=== PATIENT | female | born 1985 | race Caucasian/White ===

== ENCOUNTER 2016-11-19 20:48 | Emergency (ER) | payer SELFPAY ==
--- NOTE | 2016-11-19 21:17 | ED Physician Documentation ---
Upper Respiratory Symptoms - HISTORIAN Historian: patient - HPI Chief Complaint: Cough/ Upper Respiratory Additional Information: x 2weeks, states she has chronic bronchitis since she was born. now c/o non productive cough, diff breathing, chills, " i think i'm getting pneumonia" Onset: days ago Duration: constant Context: denies: recent foreign travel Severity: mild Associated Symptoms: chills, shortness of breath. denies: fever, sweating, runny nose, productive cough Worsened by Deep Breath: No Further Comments: no - ROS CONST/EYES: denies: weakness CVS/RESP: none LYMPH: denies: leg swelling GI/: none NEURO/PSYCH: denies: fainting, dizziness MS/SKIN: denies: joint pain - PAST HX Lung Disease: bronchitis PE Risk Factors: hypertension Other History: diabetes Type 1 Allergies/Adverse Reactions: Allergies Allergy/AdvReac Type Severity Reaction Status Date / Time acetaminophen Allergy Verified 11/19/16 21:14 [From Darvocet-N 100] diazepam [From Valium] Allergy Verified 11/19/16 21:14 Penicillins Allergy Verified 11/19/16 21:14 propoxyphene napsylate Allergy Verified 11/19/16 21:14 [From Darvocet-N 100] tramadol HCl [From Ultram] Allergy Verified 11/19/16 21:14 ondansetron HCl [From Zofran] AdvReac Mild nausea Verified 11/19/16 21:14 Home Medications: Ambulatory Orders Medication Instructions Recorded Insulin Glargine,Hum.rec.anlog 18 unit SQ HS 06/20/14 [Lantus] Acetaminophen with Codeine 1 - 2 each PO q4-6hrs prn u2 11/30/14 [Tylenol With Codeine #3 Tablet] Carisoprodol [Soma] 350 mg PO q8hrs u2 11/30/14 Ondansetron HCl Rapdis [Zofran Odt] 4 mg PO Q6H PRN #10 tab 01/29/15 Citalopram Hydrobromide 20 mg PO DAILY #30 tablet 08/17/15 [Citalopram HBr] Dicyclomine HCl [Bentyl] 10 mg PO QID #20 capsule 08/17/15 Fluconazole [Diflucan] 150 mg PO QD #7 tablet 08/17/15 [place] Carbonate 300 mg PO BID #60 tablet 08/17/15 Metformin HCl [Glucophage] [place] [address] #60 tablet 08/17/15 gliPIZIDE [Glucotrol] 5 mg PO 0730 #30 tablet 08/17/15 - SOCIAL HX Smoking History: cigarettes, greater than 1 pack/day Alcohol Use: none Drug Use: none - FAMILY HX Family History: none - VITAL SIGNS Vital Signs: Vital Signs Temp Pulse Resp BP Pulse Ox 136/78 05/27/16 22:58 - REVIEWED ASSESSMENTS Nursing Assessment Reviewed: Yes Vitals Reviewed: Yes ED Results Lab/Radiology - Orders Orders: ED Orders Category Date Time Status Ipratropium/Albuterol Sulfate [Duoneb] Med 11/19/16 21:13 Discontinued 3 ml NEB NOW ONE methylPREDNISolone SOD SUCC [Solu-MEDROL] Med 11/19/16 21:14 Discontinued 125 mg IM NOW ONE Upper Respiratory Symptoms - EXAM General Appearance: no acute distress, alert, anxious EENT: eyes nml inspection, nml ENT inspection Neck: normal inspection, supple Respiratory: no resp. distress, wheezes Abdomen: non-tender CVS: heart sounds normal, equal pulses Skin: color nml, no rash Extremities: non-tender, normal range of motion, no evidence of injury, no edema Neuro/Psych: oriented x3 Discharge Clincal Impression: Bronchitis, Reactive airway disease that is not asthma Clincal Impression: (Ruled Out): URI (upper respiratory infection) Referrals: Vita Acosta MD [Primary Care Provider] - 2 Days Home Medications: Ambulatory Orders Insulin Glargine,Hum.rec.anlog [Lantus] 18 unit SQ HS 06/20/14 Acetaminophen with Codeine [Tylenol With Codeine #3 Tablet] 1 - 2 each PO q4- 6hrs prn u2 11/30/14 Carisoprodol [Soma] 350 mg PO q8hrs u2 11/30/14 Ondansetron HCl Rapdis [Zofran Odt] 4 mg PO Q6H PRN #10 tab 01/29/15 Citalopram Hydrobromide [Citalopram HBr] 20 mg PO DAILY #30 tablet 08/17/15 Dicyclomine HCl [Bentyl] 10 mg PO QID #20 capsule 08/17/15 Fluconazole [Diflucan] 150 mg PO QD #7 tablet 08/17/15 [place] Carbonate 300 mg PO BID #60 tablet 08/17/15 Metformin HCl [Glucophage] [place] [address] #60 tablet 08/17/15 gliPIZIDE [Glucotrol] 5 mg PO 0730 #30 tablet 08/17/15 Condition: Stable Disposition: 01 HOME, SELF-CARE Decision to Admit: NO Date of Decison to Admit: 11/19/16 Decision Time: 21:22
[2016-11-19] MEDS: IPRATROPIUM/ALBUTEROL SULFATE 3 ML AMPUL.NEB NEB ONE (21:25)
[2016-11-19] MEDS: methylPREDNISolone SOD SUCC 125 MG/2 ML VIAL IM ONE (21:25)
[2016-11-19 22:17] VITALS: BP 114/74
== END 2016-11-19 22:00 | disposition home or self-care (01) ==
LOC: ED 20:48
DX: J40 Bronchitis, not specified as acute or chronic (principal)
CPT/HCPCS: 96372; 99283; J2930

== ENCOUNTER 2016-12-05 07:43 | Outpatient (CLI) | payer OTHER ==
[2016-12-05 18:21] LABS: TOTAL PROTEIN 6.8 g/dL (6.0-8.5)
== END 2016-12-05 07:44 ==
LOC: LAB 07:43
PROVIDERS: ATTEND Family Medicine
DX: E10.9 Type 1 diabetes mellitus without complications (principal)
CPT/HCPCS: 80053; 80061; 82043; 83036

== ENCOUNTER 2017-01-05 09:30 | Outpatient (CLI) | payer OTHER | END 2017-01-05 09:32 | LOC: LAB 09:30 | PROVIDERS: ATTEND Family Medicine | DX: Z79.899 Other long term (current) drug therapy (principal) | CPT/HCPCS: 36415; 80178 ==

== ENCOUNTER 2017-01-27 07:53 | Outpatient (CLI) | payer OTHER | END 2017-01-27 08:23 | LOC: LAB 07:53 | PROVIDERS: ATTEND Family Medicine | DX: F31.81 Bipolar II disorder (principal); E78.2 Mixed hyperlipidemia | CPT/HCPCS: 36415; 80061; 80178 ==

== ENCOUNTER 2017-02-11 11:05 | Outpatient (CLI) | payer OTHER ==
[2017-02-11 12:15] LABS: eGFR (African) > 60; eGFR (Non-African) > 60
== END 2017-02-11 11:06 ==
LOC: LAB 11:05
PROVIDERS: ATTEND Internal Medicine Endocrinology, Diabetes & Metabolism
DX: E11.9 Type 2 diabetes mellitus without complications (principal)
CPT/HCPCS: 36415; 80053; 82043; 82306; 82530; 82570; 83036; 83519

== ENCOUNTER 2017-05-20 10:09 | Outpatient (CLI) | payer OTHER ==
[2017-05-20 10:36] LABS: BASOPHILS % 0.5 (0.0-1.5); EOSINOPHILS % 2.1 % (0.0-6.8); MEAN CORPUSCULAR HEMOGLOBIN 26.2 pg (28.0-34.0); MEAN CORPUSCULAR VOLUME 83.6 fl (80.0-100.0); MONOCYTES % 2.9 % (0.0-11.0); NEUTROPHILS # 7.2 # k/uL (1.4-7.7)
[2017-05-20 11:02] LABS: eGFR (African) > 60; eGFR (Non-African) > 60
== END 2017-05-20 11:00 ==
LOC: LAB 10:09
PROVIDERS: ATTEND Family Medicine
DX: M54.2 Cervicalgia (principal); G89.29 Other chronic pain
CPT/HCPCS: 36415; 80053; 82550; 84443; 85025; 85651; 86038; 86140; 86431

== ENCOUNTER 2017-06-05 08:12 | Outpatient (CLI) | payer OTHER | END 2017-06-05 08:13 | LOC: LAB 08:12 | PROVIDERS: ATTEND Internal Medicine | DX: E11.9 Type 2 diabetes mellitus without complications (principal) | CPT/HCPCS: 36415; 80061; 83036; 84443 ==

== ENCOUNTER 2017-06-08 08:34 | Outpatient (CLI) | payer OTHER | END 2017-06-08 08:36 | LOC: LAB 08:34 | PROVIDERS: ATTEND Family Medicine | DX: Z79.899 Other long term (current) drug therapy (principal) | CPT/HCPCS: 36415; 80178 ==

== ENCOUNTER 2017-08-22 23:55 | Emergency (ER) | payer OTHER ==
[2017-08-23] MEDS ORDERED: PROMETHAZINE HCL 12.5 MG in 0.9 % SODIUM CHLORIDE 50 ML IV ONE (00:36)
--- NOTE | 2017-08-23 00:44 | ED Physician Documentation ---
General Adult - HISTORIAN Historian: patient, spouse - HPI Stated Complaint: n/v Chief Complaint: General Adult Additional Information: ne since had lo bs-60 2d ago unable keep down any food. no known exposure. diabetes mellitus dx had gestational diabetes prior. had eaten [place] balanced diet prior to the lo bsof 60. has been there before but no after problems. no known exposure or illness Onset: days ago (2) Timing: still present, worse Severity: mild, moderate - ROS CONST: no problems EYES/ENT: none. denies: problems with vision CVS/RESP: none. denies: chest pain, shortness of breath GI/: none, vomiting, nausea. denies: problems urinating, diarrhea MS/SKIN/LYMPH: none. denies: calf pain, neck pain, joint pain NEURO/PSYCH: denies: headache, fainting, dizziness - PAST HX Past History: other (dm bipolar lo thryoid fibromyalgia anxiety) Surgeries/Procedures: BTL, cholecystectomy, other (csect ) Allergies/Adverse Reactions: Allergies Allergy/AdvReac Type Severity Reaction Status Date / Time diazepam [From Valium] Allergy Verified 08/26/17 01:13 Penicillins Allergy Verified 08/26/17 01:13 propoxyphene napsylate Allergy Verified 08/26/17 01:13 [From Darvocet-N 100] tramadol HCl [From Ultram] Allergy Verified 08/26/17 01:13 ondansetron HCl [From Zofran] AdvReac Mild nausea Verified 08/26/17 01:13 Home Medications: Ambulatory Orders Medication Instructions Recorded Cholecalciferol (Vitamin D3) 5,000 mg PO D 08/23/17 [Vitamin D3] Insulin Aspart Protam & Aspart 1 unit SQ DIRECTED 08/23/17 [Novolog Mix 70-30 Vial] Lamotrigine [Lamictal] 25 mg PO D 08/23/17 Saxagliptin HCl [Onglyza] 5 mg PO D 08/23/17 - SOCIAL HX Smoking History: cigarettes Alcohol Use: none Drug Use: none - FAMILY HX Family History: No - VITAL SIGNS Vital Signs: Vital Signs Temp Pulse Resp BP Pulse Ox 98.5 F 76 18 110/70 99 08/22/17 23:55 08/22/17 23:55 08/22/17 23:55 08/22/17 23:55 08/22/17 23:55 - REVIEWED ASSESSMENTS Nursing Assessment Reviewed: Yes Vitals Reviewed: Yes ED Results Lab/Radiology - Orders Orders: ED Orders Category Date Time Status Place IV Lock 1T Care 08/23/17 00:37 Ordered CBC/PLATELET/DIFF Routine Lab 08/23/17 Ordered CMP Routine Lab 08/23/17 Ordered LIPASE Stat Lab 08/23/17 Ordered URINALYSIS Routine Lab 08/23/17 Ordered 0.9 % Sodium Chloride [Normal Saline] 1,000 ml Med 08/23/17 01:00 Ordered IV Q1H Promethazine HCl [Phenergan] 12.5 mg Med 08/23/17 00:36 Ordered 0.9 % Sodium Chloride [Sodium Chloride] 50 ml IV NOW General Adult Physical Exam - PHYSICAL EXAM GENERAL APPEARANCE: mild distress EENT: eye inspection normal NECK: normal inspection, thyroid normal. No: lymphadenopathy RESPIRATORY: no resp distress, chest non-tender, breath sounds normal CVS: reg rate & rhythm, heart sounds normal, equal pulses ABDOMEN: soft, non-tender BACK: normal inspection, no CVA tenderness, CVA tenderness (R), CVA tenderness ( L) SKIN: warm/dry, normal color. No: cyanosis, diaphoresis, jaundice, mottled EXTREMITIES: non-tender, no evidence of injury NEURO: oriented X3, motor nml, sensation nml, mood/affect nml Discharge Clincal Impression: uncontrolled diabetes mellitus Referrals: Vita Acosta MD [Primary Care Provider] - 2 Days Additional Instructions: cont diabetic diet see pcp soon Condition: Good Disposition: 01 HOME, SELF-CARE Decision to Admit: NO Decision Time: 14:49
[2017-08-23] MEDS ORDERED: 0.9 % SODIUM CHLORIDE 1,000 ML IV ONE (00:48)
[2017-08-23] MEDS ORDERED: PROMETHAZINE HCL 25 MG/ML VIAL ONE (00:48)
[2017-08-23] MEDS ORDERED: 0.9 % SODIUM CHLORIDE 1,000 ML IV SCH (01:00)
[2017-08-23 01:21] LABS: BASOPHILS % 0.4 (0.0-1.5); EOSINOPHILS % 2.7 % (0.0-6.8); MEAN CORPUSCULAR HEMOGLOBIN 23.2 pg (28.0-34.0); MEAN CORPUSCULAR VOLUME 77.6 fl (80.0-100.0); NEUTROPHILS # 6.8 # k/uL (1.4-7.7)
[2017-08-23 01:35] LABS: eGFR (Non-African) > 60
[2017-08-23 02:28] VITALS: BP 109/70
[2017-08-23 06:02] LABS: APPEARANCE,URINE CLOUDY (CLEAR); COLOR,URINE YELLOW (YELLOW); OCCULT BLOOD,URINE 1+ (NEGATIVE); UROBILINOGEN URINE 0.2 Eu (0.2-1.0)
== END 2017-08-23 02:06 | disposition home or self-care (01) ==
LOC: ED 23:55
DX: E11.9 Type 2 diabetes mellitus without complications (principal)
CPT/HCPCS: 80053; 81002; 83690; 85025; J2550; J7030; 96365; 96375; 99284; S1016

== ENCOUNTER 2017-08-26 00:52 | Emergency (ER) | payer OTHER ==
--- NOTE | 2017-08-26 00:56 | ED Physician Documentation ---
General Adult - HISTORIAN Historian: patient - HPI Stated Complaint: headache Chief Complaint: Headache Onset: days ago Timing: still present Severity: moderate Further Comments: yes (Pt is a 31 yo female with a migraine headache that she has had for 5 days. Headache is similar to previous migraines that the pt has had. Pt has had n/v, photophobia. Severity is 11/23.) - ROS CONST: no problems EYES/ENT: none CVS/RESP: none GI/: vomiting, nausea MS/SKIN/LYMPH: none NEURO/PSYCH: headache - PAST HX Past History: other (migraine headache, DM, HLD, Psych d/o, Hypothyroidism) Surgeries/Procedures: , cholecystectomy Allergies/Adverse Reactions: Allergies Allergy/AdvReac Type Severity Reaction Status Date / Time diazepam [From Valium] Allergy Verified 08/26/17 01:13 Penicillins Allergy Verified 08/26/17 01:13 propoxyphene napsylate Allergy Verified 08/26/17 01:13 [From Darvocet-N 100] tramadol HCl [From Ultram] Allergy Verified 08/26/17 01:13 ondansetron HCl [From Zofran] AdvReac Mild nausea Verified 08/26/17 01:13 Home Medications: Ambulatory Orders Medication Instructions Recorded Cholecalciferol (Vitamin D3) 5,000 mg PO D 08/23/17 [Vitamin D3] Insulin Aspart Protam & Aspart 1 unit SQ DIRECTED 08/23/17 [Novolog Mix 70-30 Vial] Lamotrigine [Lamictal] 25 mg PO D 08/23/17 Saxagliptin HCl [Onglyza] 5 mg PO D 08/23/17 - SOCIAL HX Smoking History: cigarettes Alcohol Use: occasionally - FAMILY HX Family History: No - VITAL SIGNS Vital Signs: Vital Signs Temp Pulse Resp BP Pulse Ox 109/70 08/23/17 02:25 - REVIEWED ASSESSMENTS Nursing Assessment Reviewed: Yes Vitals Reviewed: Yes Progress - Progress Progress: NS 1 L IVF Phenergan 25 mg IV in IVF Toradol 30 mg IV little improvement Nubain 5 mg IV improved General Adult Physical Exam - PHYSICAL EXAM GENERAL APPEARANCE: moderate distress EENT: eye inspection normal, pharynx normal NECK: normal inspection, supple RESPIRATORY: no resp distress, chest non-tender, breath sounds normal CVS: reg rate & rhythm, heart sounds normal ABDOMEN: soft, no organomegaly, normal bowel sounds BACK: normal inspection, no CVA tenderness SKIN: warm/dry, normal color EXTREMITIES: non-tender, normal range of motion, no evidence of injury, no edema NEURO: oriented X3, CN's nml as tested, motor nml, sensation nml Discharge Clincal Impression: migraine headache Referrals: Vita Acosta MD [Primary Care Provider] - Condition: Stable Disposition: 01 HOME, SELF-CARE Decision to Admit: NO Decision Time: 03:01
[2017-08-26] MEDS: KETOROLAC TROMETHAMINE 30 MG/1ML VIAL IVP ONE (01:30)
[2017-08-26] MEDS: PROMETHAZINE HCL 25 MG in 0.9 % SODIUM CHLORIDE 50 ML IV ONE (01:35)
[2017-08-26] MEDS: 0.9 % SODIUM CHLORIDE 1,000 ML IV ONE (01:35)
[2017-08-26] MEDS: PROMETHAZINE HCL 25 MG/ML VIAL ONE (01:41)
[2017-08-26 02:03] LABS: BASOPHILS % 0.3 (0.0-1.5); EOSINOPHILS % 2.3 % (0.0-6.8); MEAN CORPUSCULAR VOLUME 76.9 fl (80.0-100.0); MONOCYTES % 3.6 % (0.0-11.0); NEUTROPHILS # 5.7 # k/uL (1.4-7.7)
[2017-08-26 02:17] LABS: eGFR (African) > 60; eGFR (Non-African) > 60
[2017-08-26] MEDS: NALBUPHINE HCL 10 MG/1 ML IVP ONE (02:36)
[2017-08-26 03:06] VITALS: BP 105/59
== END 2017-08-26 03:00 | disposition home or self-care (01) ==
LOC: ED 00:52
DX: G43.909 Migraine, unspecified, not intractable, without status migrainosus (principal)
CPT/HCPCS: 80053; 85025; J1885; J2300; J2550; J7030; 96365; 96375; 99284; S1016

== ENCOUNTER 2017-11-02 08:03 | Outpatient (CLI) | payer OTHER | END 2017-11-02 08:05 | LOC: LAB 08:03 | PROVIDERS: ATTEND Internal Medicine | DX: E11.9 Type 2 diabetes mellitus without complications (principal) | CPT/HCPCS: 36415; 82652; 83036; 84439; 84443 ==

== ENCOUNTER 2017-12-10 08:00 | Outpatient (CLI) | payer OTHER | END 2017-12-10 08:02 | LOC: LAB 08:00 | PROVIDERS: ATTEND Nurse Practitioner Adult Health | DX: F31.9 Bipolar disorder, unspecified (principal) | CPT/HCPCS: 36415; 80178 ==

== ENCOUNTER 2018-02-01 11:17 | Outpatient (CLI) | payer OTHER ==
[2018-02-01] MEDS ORDERED: ALBUTEROL SULFATE 2.5 MG/3 ML AMPUL.NEB NEB ONE (11:29)
== END 2018-02-01 11:18 ==
LOC: RT 11:17
PROVIDERS: ATTEND Family Medicine
DX: R06.02 Shortness of breath (principal)
CPT/HCPCS: 94060

== ENCOUNTER 2018-02-04 01:19 | Emergency (ER) | payer OTHER ==
[2018-02-04 01:36] VITALS: BP 113/69
--- NOTE | 2018-02-04 01:37 | ED Physician Documentation ---
Sore Throat/Dental Pain - HISTORIAN Historian: patient - HPI Stated Complaint: dental pain Chief Complaint: Dental Pain Additional Information: Patient presents to ED with a 2 day history of left upper dental pain. She states her left upper wisdom tooth is pushing all of her teeth forward and casuing the pain. She has left sided facial swelling associated with the pain. Ice, tylenol and ibuprofen have not helped with the discomfort. Onset: hours (2) Context: Dental Caries Associated Symptoms: denies: fever Worsened By: other (talking, moving jaw) - ROS CONST: no problems CVS/RESP: none GI/: denies: nausea, vomiting MS/SKIN/LYMPH: denies: muscle aches NEURO/PSYCH: headache - PAST HX Past History: none Other History: none Allergies/Adverse Reactions: Allergies Allergy/AdvReac Type Severity Reaction Status Date / Time diazepam [From Valium] Allergy Verified 02/04/18 01:36 Penicillins Allergy Verified 02/04/18 01:36 propoxyphene napsylate Allergy Verified 02/04/18 01:36 [From Darvocet-N 100] tramadol HCl [From Ultram] Allergy Verified 02/04/18 01:36 ondansetron HCl [From Zofran] AdvReac Mild nausea Verified 02/04/18 01:36 Home Medications: Ambulatory Orders Medication Instructions Recorded Cholecalciferol (Vitamin D3) 5,000 mg PO D 08/23/17 [Vitamin D3] Insulin Aspart Protam & Aspart 1 unit SQ DIRECTED 08/23/17 [Novolog Mix 70-30 Vial] Lamotrigine [Lamictal] 25 mg PO D 08/23/17 Saxagliptin HCl [Onglyza] 5 mg PO D 08/23/17 Clindamycin HCl [Cleocin HCl] 300 mg PO TID #30 capsule 02/04/18 Insulin Glargine,Hum.rec.anlog 20 unit SQ HS 02/04/18 [Lantus] - SOCIAL HX Smoking History: non-smoker Alcohol Use: none Drug Use: none - FAMILY HX Family History: No - VITAL SIGNS Vital Signs: Vital Signs Temp Pulse Resp BP Pulse Ox 105/59 08/26/17 03:00 - REVIEWED ASSESSMENTS Nursing Assessment Reviewed: Yes Vitals Reviewed: Yes Dental Pain Physical Exam - EXAM General Appearance: no acute distress, alert Head/Neck: other (left facial swelling). No: no lymphadenopathy Mouth/Throat: gum swelling around teeth, widespread dental decay Ear/Nose: nml inspection Respiratory: no resp. distress, breath sounds nml CVS: reg. rate & rhythm Abdomen: soft Extremities: non-tender Skin: warm/dry Neuro/Psych: No: weakness Discharge Clincal Impression: Dental caries Prescriptions: Clindamycin HCl [Cleocin HCl] 300 mg PO TID #30 capsule Referrals: Vita Acosta MD [Primary Care Provider] - 2 Days Additional Instructions: 1. Take antibiotics as prescribed 2. Follow up with Dentist for tooth extraction as soon as possible 3. Take Ibuprofen and Tylenol for pain 4. Rinse mouth with 1 tsp salt/1tsp baking soda in 1 cup warm water every 6 hours Condition: Stable Disposition: 01 HOME, SELF-CARE Decision to Admit: NO Date of Decison to Admit: 02/04/18 Decision Time: 01:59
[2018-02-04] MEDS ORDERED: HYDROcodone /APAP 5/325 1 EACH TABLET PO ONE (01:42)
[2018-02-04] MEDS ORDERED: cefTRIAXone SODIUM 1 GM VIAL IM ONE (01:43)
[2018-02-04] MEDS ORDERED: LIDOCAINE HCL 1% PF 50MG/5ML AMP (IM/SUTURE/PAIN CLINIC) IVP ONE (01:44)
== END 2018-02-04 02:05 | disposition home or self-care (01) ==
LOC: ED 01:19
DX: K02.9 Dental caries, unspecified (principal)
CPT/HCPCS: 96372; 99282; A9270; J0696

== ENCOUNTER 2018-04-19 08:03 | Outpatient (CLI) | payer OTHER ==
[2018-04-19 08:43] LABS: eGFR (Non-African) > 60
== END 2018-04-19 08:10 ==
LOC: LAB 08:03
PROVIDERS: ATTEND Internal Medicine
DX: E11.65 Type 2 diabetes mellitus with hyperglycemia (principal)
CPT/HCPCS: 36415; 80053; 80061; 83036; 84443